=== PATIENT | male | born 1980 | race African-American/Black ===

== ENCOUNTER 2017-07-09 23:58 | Emergency (ER) | payer SELFPAY ==
[~2017-07-09] VITALS: Ht 188 cm; Wt 191.0 kg
[2017-07-10] MEDS ORDERED: AMIODARONE HCL 50 MG/ML 3 ML VIAL IVP ONE
[2017-07-10] MEDS ORDERED: CALCIUM CHLORIDE 100 MG/ML 10 ML SYRINGE IVP ONE
[2017-07-10] MEDS ORDERED: SUCCINYLCHOLINE CHLORIDE 20 MG/ML 10 ML VIAL IVP ONE
[2017-07-10] MEDS ORDERED: EPINEPHrine 1:10,000 [1 MG/10 ML] SYRINGE IVP ONE ×2
[2017-07-10] MEDS ORDERED: SODIUM BICARBONATE [ADULT] 8.4% 50 MEQ/50 ML SYRINGE IVP ONE
[2017-07-10 00:37] VITALS: BP 0/0
== END 2017-07-10 02:40 | disposition expired ==
LOC: EDBD 23:59 → EMS 23:59
DX: I46.9 Cardiac arrest, cause unspecified (principal)
CPT/HCPCS: 31500; 82962; 92950; 99291; J0171; J0282; J0330; J3490 ×2